=== PATIENT | female | born 1995 | race Caucasian/White ===

== ENCOUNTER 2017-03-01 11:48 | Emergency (ER) | payer OTHER ==
[~2017-03-01] VITALS: Ht 160 cm; Wt 65.8 kg
[~2017-03-01 11:48] MED LIST: BACTRIM DS TAB1 EACH PO; HYDROCODONE-AP1 EAC6 PO; NORCO 5-325 TA1 EAC1 PO
[2017-03-01] MEDS ORDERED: NORCO 5-325 TA1 EACH PO (14:46)
[2017-03-01] MEDS ORDERED: BACTRIM DS TAB1 EACH PO (14:46)
[2017-03-01] MEDS ORDERED: IBUPROFEN 800800 MG PO (14:46)
[2017-03-01 15:07] VITALS: BP 106/71
== END 2017-03-01 15:09 | disposition home or self-care (01) ==
LOC: M.ERS 11:48
DX: L05.01 Pilonidal cyst with abscess (principal)